=== PATIENT | female | born 1960 ===

== ENCOUNTER 2025-06-14 07:00 | Day surgery (SDC) | payer OTHER ==
[2025-06-07 07:46] VITALS: BP 115/76
[2025-06-07 08:07] LABS: BASO % 0.5 % (0.1-1.2); EOS # 0.09 (0.04-0.54); EOS % 1.1 % (0.7-7.0); LYMPH # 2.42 (1.18-3.74); LYMPH % 30.7 % (19.3-53.1); MEAN PLATELET VOLUME 9.90 fl (9.4-12.4); MONO # 0.48 (0.24-0.82); MONO % 6.1 % (4.7-12.5); NEUT # 4.81 (1.56-6.13); NEUT % 61.0 % (34.0-71.1); RED CELL DISTRIBUTION WIDTH 14.4 % (11.6-14.4)
[2025-06-07 08:10] LABS: URINE APPEARANCE Clear; URINE BILIRRUBIN Negative (NEGATIVE); URINE BLOOD Negative; URINE COLOR Yellow; URINE GLUCOSE Negative (NEGATIVE); URINE KETONE Trace (NEGATIVE); URINE LEUKOCYTE Trace; URINE NITRATE Negative; URINE PROTEIN Negative (NEGATIVE); URINE UROBILINOGEN 1.0 E.U./dl
[2025-06-07 08:14] LABS: URINE BACTERIA 674.3 uL (0.0-1933); URINE EPITHELIAL CELLS 65.9 uL (0.0-38.8); URINE RBC 11.4 uL (0.0-20.8); URINE WBC 11.2 uL (0.0-23.2)
[2025-06-07 08:40] LABS: INR 1.02
[2025-06-07 08:50] LABS: ALT/SGPT 29.0 U/L (12-78); AST/SGOT 16.0 U/L (15-37); BILIRUBIN TOTAL 0.6 mg/dL (0.3-1.2); BUN CREA RATIO 20.0 (7.0-25.0); CREATININE SERUM 1.23 mg/dL (0.55-1.02); GFR 44.24; GLOBULINA 3.6 G/DL (2.4-3.5); GLUCOSE FASTING 130.0 mg/dL (65-100); OSMOLALITY SERUM 296.0 MOSM/KG (275-295)
[2025-06-07 09:14] LABS: URINE CAST 0.14 uL (0.0-1.40)
[~2025-06-14] VITALS: Ht 157.5 cm; Wt 65.8 kg
[~2025-06-14 07:00] MED LIST: GLIMEPIRIDE4 MG; TRICOR48 MG; VALSARTAN-HCTZ1 EAC2 PO; [UNRECOGNIZED DRUG - REMARK]
[2025-06-14] MEDS ORDERED: CEFAZOLIN SODIUM 1,000 MG VIAL ONE (08:02)
== END 2025-06-14 12:30 | disposition home or self-care (01) ==
LOC: CIR.AMB 07:00
PROVIDERS: ATTEND Surgery
DX: K42.0 Umbilical hernia with obstruction, without gangrene (principal)
CPT/HCPCS: 49594; C1781